=== PATIENT | female | born 1955 | race Caucasian/White ===

== ENCOUNTER → 2022-06-12 | Outpatient (CLI) | payer MEDICARE ==
--- NOTE | 2022-06-12 12:09 | Diagnostic Imaging Report ---
INDICATION: Postmenopausal screening. COMPARISON: None FINDINGS: AP Spine L1-L4: [BMD (g/cm2): 0.901] [T-Score: -2.5] [Z-Score: -0.6] [BMD Previous: na] [BMD % Change: na] LT Hip Neck: [BMD (g/cm2): 0.820] [T-Score: -1.6] [Z-Score: 0.2] LT Hip Total: [BMD (g/cm2):0.916] [T-Score:-0.7] [Z-Score: 0.8] [BMD Previous: na] [BMD % Change: na] RT Hip Neck: [BMD (g/cm2):0.899] [T-Score:-1.0] [Z-Score:0.8] RT Hip Total: [BMD (g/cm2):0.942] [T-score:-0.5] [Z-Score:1.0] [BMD Previous:na] [BMD % Change:na] *Indicates significant change from prior examination based on 95% confidence level. World Health Organization criteria for BMD interpretation classify patients as Normal (T-score at or above -1.0), Osteopenic (T-score between -1.0 and -2.5) or Osteoporotic (T-score at or below -2.5). LIMITATIONS AND MODIFICATION: None. FRACTURE RISK (FRAX SCORE): The ten year probability of (%): Major Osteoporotic Fracture: [9.9] Hip Fracture: [1.4] IMPRESSION: 1. Osteoporosis. 2. Baseline examination. 3. See below National Osteoporosis Foundation guidelines on when to potentially initiate pharmacologic therapy. Based on the National Osteoporosis Foundation Guidelines, pharmacologic treatment should be initiated in any of the following, unless clinical conditions suggest otherwise: * Any patient with prior fragility fracture of the hip or vertebrae. A spine fracture indicates 5X risk for subsequent spine fracture and 2X risk for subsequent hip fracture. * Osteoporosis (T-score <-2.5). * Postmenopausal women and men age 50 and older with low bone mass/osteopenia (T-score between -1.0 and -2.5) by DXA and 10-year major osteoporotic fracture greater than 20% or a 10-year probability of hip fracture greater than 3%. These fracture risks are supplied above in the FRAX score, if applicable. * Clinician judgement and/or patient preferences may indicate treatment for people with 10-year fracture probabilities above or below these levels. Dictated by: Dictated on workstation # [id number]
== END ==
LOC: RAD 11:00
PROVIDERS: ATTEND Nurse Practitioner Family
DX: Z13.820 Encounter for screening for osteoporosis (principal); M81.0 Age-related osteoporosis without current pathological fracture; Z78.0 Asymptomatic menopausal state
CPT/HCPCS: 77080

== ENCOUNTER 2022-08-23 05:31 | Outpatient (CLI) | payer MEDICARE ==
[~2022-08-23] VITALS: Ht 155 cm; Wt 59.0 kg
[2022-08-23] MEDS ORDERED: OXCA150T18 PO (12:00)
[2022-08-23] MEDS ORDERED: LISI10TA25 PO (12:00)
[2022-08-23] MEDS ORDERED: ALEN70TA80 PO (12:01)
== END 2022-08-23 12:31 | disposition home or self-care (01) ==
LOC: PREOP 05:31
PROVIDERS: ATTEND Otolaryngology Otolaryngology/Facial Plastic Surgery
DX: Z01.818 Encounter for other preprocedural examination (principal)

== ENCOUNTER 2022-08-30 07:01 | Day surgery (SDC) | payer MEDICARE ==
[~2022-08-30] VITALS: Ht 155 cm; Wt 59.0 kg
[2022-08-30] VITALS (11 sets, daily range): BP systolic 84–135; BP diastolic 32–92
[~2022-08-30 07:01] MED LIST: ALEN70TA80 PO; LISI10TA25 PO; OXCA150T18 PO
[2022-08-30] MEDS ORDERED: MIDAZOLAM 2 MG/2 ML (VERSED) VIAL ONE (07:47)
[2022-08-30] MEDS ORDERED: SCOPOLAMINE 1.5 MG (TRANSDERM-SCOP) PATCH ONE (07:48)
[2022-08-30] MEDS ORDERED: FAMOTIDINE 20MG/2ML IV (PEPCID) ONE (07:48)
[2022-08-30] MEDS ORDERED: ONDANSETRON 4 MG/2 ML (SDV) Z0FRAN ONE ×2 (07:48→08:08)
[2022-08-30 07:53] LABS: BASOPHILS # (AUTO) 0.1 10^3/uL (0.0-0.1); BASOPHILS % (AUTO) 1 % (0-10); EOSINOPHILS # (AUTO) 0.1 10^3/uL (0.0-0.3); EOSINOPHILS % (AUTO) 2 % (0-10); HEMATOCRIT 37 % (35-52); HEMOGLOBIN 12.3 g/dL (11.5-16.0); LYMPHOCYTES # (AUTO) 2.7 10^3/uL (1.0-4.0); LYMPHOCYTES % (AUTO) 48 % (12-44); MEAN CORPUSCULAR HEMOGLOBIN 31 pg (25-34); MEAN CORPUSCULAR HGB CONC 34 g/dL (32-36); MEAN CORPUSCULAR VOLUME 92 fL (80-99); MEAN PLATELET VOLUME 9.5 fL (9.0-12.2); MONOCYTES # (AUTO) 0.4 10^3/uL (0.0-1.0); MONOCYTES % (AUTO) 7 % (0-12); NEUTROPHILS # (AUTO) 2.4 10^3/uL (1.8-7.8); NEUTROPHILS % (AUTO) 42 % (42-75); PLATELET COUNT 313 10^3/uL (130-400); WHITE BLOOD COUNT 5.7 10^3/uL (4.3-11.0)
[2022-08-30] MEDS: LACTATED RINGERS 1,000 ML IV PRN ×2 (07:57→09:15)
[2022-08-30] MEDS ORDERED: ONDANSETRON 4 MG/2 ML (SDV) Z0FRAN IV ONE (08:00)
[2022-08-30] MEDS ORDERED: SCOPOLAMINE 1.5 MG (TRANSDERM-SCOP) PATCH TOP ONE (08:00)
[2022-08-30] MEDS ORDERED: MIDAZOLAM 2 MG/2 ML (VERSED) VIAL IV ONE (08:00)
[2022-08-30] MEDS ORDERED: FAMOTIDINE 20MG/2ML IV (PEPCID) IV ONE (08:00)
[2022-08-30] MEDS ORDERED: LIDOCAINE/EPI 1%-1:100,000 (XYLOCAINE) 10 ML ONE ×2 (08:03→08:25)
[2022-08-30] MEDS ORDERED: COCAINE HCL 4% 2 ML SYR ONE (08:03)
[2022-08-30] MEDS ORDERED: PHENYLEPHRINE 0.5% NASAL SPR (NEO-SYNEPHRINE) REG ONE ×2 (08:04→11:36)
[2022-08-30] MEDS ORDERED: fentaNYL INJ 100 MCG/2 ML AMP ONE (08:08)
[2022-08-30] MEDS ORDERED: ROCURONIUM 10 MG/ML 5 ML SYRINGE IV ONE (08:08)
[2022-08-30] MEDS ORDERED: LIDOCAINE PF 2% 5 ML (XYLOCAINE) VIAL ONE (08:08)
[2022-08-30] MEDS ORDERED: GLYCOPYRROLATE 0.2 MG/ML (ROBINUL) 2 ML VIAL ONE (08:08)
[2022-08-30] MEDS ORDERED: proPOfol 200 MG/20 ML (DIPRIVAN) VIAL IV ONE ×2 (08:08→09:04)
[2022-08-30 08:09] LABS: CALCIUM 9.1 MG/DL (8.5-10.1)
[2022-08-30] MEDS ORDERED: NEOSTIGMINE (BLOXIVERZ ) 1 MG/1ML 10 ML VIAL ONE (08:09)
[2022-08-30 08:13] LABS: CREATININE SERUM 0.8 MG/DL (0.60-1.30)
[2022-08-30] MEDS ORDERED: morphine INJ 10 MG/ML 1ML (SYR OR VIAL) IVP ONE (08:30)
[2022-08-30] MEDS ORDERED: PROMETHAZINE INJ 25 MG/ML (PHENERGAN) AMP IVP ONE (08:30)
[2022-08-30] MEDS ORDERED: HYDROmorphone 2 MG/ML VIAL (DILAUDID) IV ONE (08:30)
[2022-08-30] MEDS ORDERED: ONDANSETRON 4 MG/2 ML (SDV) Z0FRAN IVP PRN (08:30)
[2022-08-30] MEDS ORDERED: PROPOFOL INJECTION 50 ML IV ONE (08:47)
[2022-08-30] MEDS ORDERED: PHENYLEPHRINE 100 MCG/ML 10 ML (ANESTHESIA) SYR ONE (09:01)
--- NOTE | 2022-08-30 09:28 | Progress Note-Pre Operative ---
Pre-Operative Progress Note Date of Available H&P: Aug 30, 2022 Date H&P Reviewed: Aug 30, 2022 Time H&P Reviewed: 09:00 History & Physical: H&P Reviewed, Patient Examed, No changes noted Changes from last HP NONE Pre-Operative Diagnosis: Deviatd nasal SEptum , Bilat Hyper of INf Turbs ERIN MACK MD Aug 30, 2022 09:28
--- NOTE | 2022-08-30 09:29 | Progress Note-Post Operative ---
Post-Operative Progess Note Surgeon (s)/Mock Up Builder (s) Surgeon ERIN MACK MD Mock Up Builder n/a Pre-Operative Diagnosis Deviatd nasal SEptum , Bilat Hyper of INf Turbs Post-Operative Diagnosis same Post-Op Procedure Note Date of Procedure: Aug 30, 2022 Name of Procedure Performed: Nasal Septoplasty, Bialt Partial Reduction of the INferior Turbinates Description & Findings Description and Findings: n/a Anesthesia Type get Estimated Blood Loss minimal Packing none. Specimen(s) collected/removed none ERIN MACK MD Aug 30, 2022 09:29
[2022-08-30] MEDS ORDERED: HYDROcodone/APAP 5 MG/325 MG (LORTAB) TAB PO PRN (09:30)
[2022-08-30] MEDS ORDERED: PROMETHAZINE INJ 25 MG/ML (PHENERGAN) AMP IVP PRN (09:30)
[2022-08-30] MEDS ORDERED: D5 1/2 NS W/KCL 20 MEQ/L 1,000 ML IV SCH (09:30)
[2022-08-30] MEDS ORDERED: COCAINE HCL 4% 2 ML SYR TOP ONE (09:52)
[2022-08-30] MEDS ORDERED: ACHD5005 PO (10:37)
[2022-08-30] MEDS ORDERED: AMOX-355 PO (10:37)
[2022-08-30] MEDS ORDERED: ACETAMINOPHEN 325 MG TABLET ONE (11:00)
[2022-08-30] MEDS ORDERED: ACETAMINOPHEN 325 MG TABLET PO ONE (11:15)
[2022-08-30] MEDS ORDERED: LIDOCAINE/EPI 1%-1:100,000 (XYLOCAINE) 20ML IJ ONE (11:33)
--- NOTE | 2022-08-30 14:53 | Anesthesia-General Post-Op ---
General Patient Condition Mental Status/LOC: Same as Preop Cardiovascular: Satisfactory Nausea/Vomiting: Absent Respiratory: Satisfactory Pain: Controlled Complications: Absent Post Op Complications Complications None Follow Up Care/Instructions Patient Instructions None needed. Anesthesia/Patient Condition Patient Condition Patient was doing well this morning after the procedure with no complaints, stable vital signs, no apparent adverse anesthesia problems. No complications reported per nursing. MARY COTTON DO Aug 30, 2022 14:53
== END 2022-08-30 11:35 | disposition home or self-care (01) ==
LOC: SDC 07:01
PROVIDERS: ATTEND Otolaryngology Otolaryngology/Facial Plastic Surgery
DX: J34.2 Deviated nasal septum (principal); J34.89 Other specified disorders of nose and nasal sinuses; J34.3 Hypertrophy of nasal turbinates
CPT/HCPCS: 36415; 80048; 85025; 87081; 93005

== ENCOUNTER 2022-10-01 05:36 | Outpatient (CLI) | payer MEDICARE ==
[~2022-10-01] VITALS: Ht 156 cm; Wt 60.0 kg
[~2022-10-01 05:36] MED LIST changes: +ACHD5005 PO; +AMOX-355 PO
== END 2022-10-02 14:35 ==
LOC: PREOP 05:36
PROVIDERS: ATTEND Obstetrics & Gynecology
DX: Z01.818 Encounter for other preprocedural examination (principal); N81.10 Cystocele, unspecified; N81.6 Rectocele

== ENCOUNTER 2022-10-08 07:27 | Day surgery (SDC) | payer MEDICARE ==
[2022-10-08] VITALS (11 sets, daily range): BP systolic 86–108; BP diastolic 43–71
[2022-10-08] MEDS ORDERED: ESTROGENS CONJ. CREAM 30 GM (PREMARIN) TUBE ONE (07:42)
[2022-10-08] MEDS ORDERED: ONDANSETRON 4 MG/5 ML ORAL SOLN (ZOFRAN) 5 ML PO ONE (07:45)
[2022-10-08] MEDS ORDERED: FAMOTIDINE 20MG/2ML IV (PEPCID) IVP ONE (07:45)
[2022-10-08] MEDS ORDERED: SCOPOLAMINE 1.5 MG (TRANSDERM-SCOP) PATCH TD ONE (07:45)
[2022-10-08] MEDS ORDERED: NS (IVPB) 100 ML ONE (07:48)
[2022-10-08] MEDS ORDERED: VASOPRESSIN INJECTION 20 UNIT/ML VIAL ONE (07:49)
[2022-10-08] MEDS: LACTATED RINGERS 1,000 ML IV PRN ×2 (08:07→10:17)
[2022-10-08] MEDS ORDERED: ONDANSETRON 4 MG/2 ML (SDV) Z0FRAN IVP ONE (08:15)
[2022-10-08] MEDS ORDERED: ONDANSETRON 4 MG/2 ML (SDV) Z0FRAN ONE ×2 (08:15→09:45)
[2022-10-08] MEDS ORDERED: MIDAZOLAM 2 MG/2 ML (VERSED) VIAL ONE (08:26)
[2022-10-08] MEDS ORDERED: MIDAZOLAM 2 MG/2 ML (VERSED) VIAL IVP ONE (08:30)
[2022-10-08 08:41] LABS: BASOPHILS % (AUTO) 1 % (0-10); EOSINOPHILS # (AUTO) 0.1 10^3/uL (0.0-0.3); EOSINOPHILS % (AUTO) 1 % (0-10); HEMATOCRIT 38 % (35-52); HEMOGLOBIN 12.5 g/dL (11.5-16.0); LYMPHOCYTES # (AUTO) 2.3 10^3/uL (1.0-4.0); LYMPHOCYTES % (AUTO) 39 % (12-44); MEAN CORPUSCULAR HEMOGLOBIN 30 pg (25-34); MEAN CORPUSCULAR HGB CONC 33 g/dL (32-36); MEAN CORPUSCULAR VOLUME 93 fL (80-99); MEAN PLATELET VOLUME 9.7 fL (9.0-12.2); MONOCYTES # (AUTO) 0.5 10^3/uL (0.0-1.0); MONOCYTES % (AUTO) 8 % (0-12); NEUTROPHILS % (AUTO) 51 % (42-75); PLATELET COUNT 372 10^3/uL (130-400)
[2022-10-08] MEDS ORDERED: LIDOCAINE PF 2% 5 ML (XYLOCAINE) VIAL ONE (09:45)
[2022-10-08] MEDS ORDERED: proPOfol 200 MG/20 ML (DIPRIVAN) VIAL IV ONE (09:45)
[2022-10-08] MEDS ORDERED: fentaNYL INJ 100 MCG/2 ML AMP ONE (09:45)
[2022-10-08] MEDS ORDERED: PROPOFOL INJECTION 50 ML IV ONE ×2 (10:10→10:44)
[2022-10-08] MEDS ORDERED: ESTROGENS CONJ. CREAM 30 GM (PREMARIN) TUBE VG ONE (10:20)
[2022-10-08] MEDS ORDERED: NS 100 ML (IVPB) BAG INJ ONE (10:44)
[2022-10-08] MEDS ORDERED: VASOPRESSIN INJECTION 20 UNIT/ML VIAL INJ ONE (10:45)
--- NOTE | 2022-10-08 10:54 | Progress Note-Pre Operative ---
Pre-Operative Progress Note Date of Available H&P: Oct 08, 2022 Date H&P Reviewed: Oct 08, 2022 Time H&P Reviewed: 09:15 History & Physical: H&P Reviewed, Patient Examed, No changes noted Pre-Operative Diagnosis: Cystocele, Rectocele ERIN CASTRO DO Oct 08, 2022 10:54
--- NOTE | 2022-10-08 10:58 | Discharge Inst-Women's Service ---
Discharge Inst-Women's Serv Depart Medication/Instructions New, Converted or Re-Newed RX: Transmitted to Pharmacy Problems Reviewed?: Yes Consults/Follow Up Additional Follow Up: Yes Orders/Referrals Dr. Castro in 6-7 weeks Activity Activity: Activity as Tolerated Driving Instructions: No Driving for 1 Week NO SMOKING: NO SMOKING Nothing Inside Vagina: No Douching, No [place], No Tampons Diet Discharge Diet: No Restrictions Symptoms to Report to : Bleeding Excessive, Pain Increased, Fever Over 101 Degrees F, Vaginal Bleeding Increase, Questions/Concerns For Any Problems or Questions: Contact Your Physician ERIN CASTRO DO Oct 08, 2022 10:58
[2022-10-08] MEDS ORDERED: IBUP-844 PO (10:59)
[2022-10-08] MEDS ORDERED: DOCU100C37 PO (10:59)
[2022-10-08] MEDS ORDERED: ACHD5005 PO (10:59)
[2022-10-08] MEDS ORDERED: SIME80TA16 PO (10:59)
[2022-10-08] MEDS ORDERED: DOCUSATE SODIUM 100 MG (COLACE) CAP PO PRN (11:00)
[2022-10-08] MEDS ORDERED: ONDANSETRON 4 MG/2 ML (SDV) Z0FRAN IVP PRN (11:00)
[2022-10-08] MEDS ORDERED: KETOROLAC 30 MG/ML VIAL IVP PRN (11:00)
[2022-10-08] MEDS ORDERED: ZOLPIDEM 5 MG (AMBIEN) TAB PO PRN (11:00)
[2022-10-08] MEDS ORDERED: ONDANSETRON 4 MG/2 ML (SDV) Z0FRAN IV PRN (11:00)
[2022-10-08] MEDS ORDERED: HYDROmorphone 2 MG/ML VIAL (DILAUDID) IV ONE (11:00)
[2022-10-08] MEDS ORDERED: SIMETHICONE 80 MG (MYLICON) CHEW PO PRN (11:00)
[2022-10-08] MEDS ORDERED: ANTACID SUSP 30 ML UDC (MYLANTA) PO PRN (11:00)
[2022-10-08] MEDS ORDERED: morphine INJ 10 MG/ML 1ML (SYR OR VIAL) IVP ONE (11:00)
[2022-10-08] MEDS ORDERED: BENZOCAINE LOZENGES 1 EACH LOZENGE MM PRN (11:00)
[2022-10-08] MEDS ORDERED: IBUPROFEN 600 MG (MOTRIN) TAB PO PRN (11:00)
[2022-10-08] MEDS: LACTATED RINGERS 1,000 ML IV SCH ×3 (11:06→22:06)
--- NOTE | 2022-10-08 12:16 | Anesthesia-General Post-Op ---
General Patient Condition Mental Status/LOC: Same as Preop Cardiovascular: Satisfactory Nausea/Vomiting: Absent Respiratory: Satisfactory Pain: Controlled Complications: Absent Post Op Complications Complications None Follow Up Care/Instructions Patient Instructions None needed. Anesthesia/Patient Condition Patient Condition Patient was doing well earlier in PACU with no complaints, stable vital signs, no apparent adverse anesthesia problems. No complications reported per nursing. MARY COTTON DO Oct 08, 2022 12:16
[2022-10-08] MEDS: HYDROcodone/APAP 5 MG/325 MG (LORTAB) TAB PO PRN ×3 (12:19→17:30)
[2022-10-08] MEDS: KETOROLAC 30 MG/ML VIAL IVP SCH ×2 (14:14→19:53)
--- NOTE | 2022-10-08 21:37 | OPERATIVE REPORT ---
DATE OF SERVICE: 10/08/2022 PREOPERATIVE DIAGNOSIS: A 67-year-old female with grade 3 cystocele, grade 2 rectocele. POSTOPERATIVE DIAGNOSIS: A 67-year-old female with grade 3 cystocele, grade 2 rectocele. PROCEDURE: Anterior and posterior colporrhaphy with perineoplasty. SURGEON: Erin Castro DO ANESTHESIA: General endotracheal. ESTIMATED BLOOD LOSS: 40 mL. URINE OUTPUT: 80 mL clear at the end of procedure. SPECIMEN SENT: None. INDICATIONS FOR PROCEDURE: This is a 67-year-old female who is a patient, who sought care in my office for issues with bladder and rectal prolapse. She has been doing with this for years; however, finally she wants something done about this. She had consulted with her horseback riding instructor in [place]; however, moved to [place] recently and now wishes to proceed with this locally. Risks of the procedure were discussed with the patient in detail including risk of bleeding, infection, damaging the bladder and rectum itself, recovery time frame from this risk from anesthesia and even were all reviewed. We also discussed with the alternative of pessary placement. The patient wishes to proceed with a surgical option. After all of her questions were answered, consent was obtained preoperatively, the patient was taken to the operating room. OPERATIVE REPORT: Once in the operating room, anesthesia found to be adequate, placed in the dorsal lithotomy position and prepped and draped in a sterile fashion. Timeout was performed. A weighted speculum was inserted in the patient's vagina, which allows me to visualize the cystocele easily, which I infiltrated all margins of submucosally with vasopressin 20 units in 100 mL of normal saline concentration is used. Once all the margins of the cystocele are infiltrated and the mucosa of the vagina has blanched white as evidence of the medication being effective, I then make a transverse incision at the vaginal mucosa overlying the urethra, undermined the tissue down the midline using Metzenbaum scissors and make an incision of the mucosa down the midline using Metzenbaum scissors. Once this was done, I grasped the lateral margins of the mucosa tented upward with IT clamp and dissect the underlying vesicovaginal fascia laterally until the margins of the cystocele were met. After this was done bilaterally, I then plicate the cystocele by grabbing the lateral margins of the vesicovaginal fascia using 0 Vicryl suture in interrupted fashion. This reduces the cystocele as I go, the excess vaginal mucosa was then trimmed and then the vaginal mucosa was then reapproximated using 3-0 Vicryl suture in a running locked fashion after which there was no active bleeding noted from the anterior repair. The weighted speculum was removed. I took my attention to the posterior repair where at the mucocutaneous junction, I grasped at 4 and 8 o'clock positions using an Allis clamp and elevate the peritoneum and the perineal body, I infiltrate the subcutaneous tissue of the perineal body using the same vasopressin concentration. I then take this down the rectocele margin using vasopressin as well until all adequate tissue was blanched at which point I began the rectocele repair and perineoplasty by creating a triangular incision down the midline of the perineal body using a knife and I removed and excised this triangular shape of the perineum. This leads me with an opening defect and I am able to undermine using Metzenbaum scissors down the midline of the rectocele repair. Once this was done on the midline, I did make an incision down the midline of the rectocele repair and dissect the underlying rectovaginal fascia laterally. I trimmed the excess vaginal mucosa at this point and then began by reapproximating the vaginal mucosa and the rectovaginal fascia all in one layer using 3-0 Vicryl suture in a running locked fashion to secure bleeding as I go. Once I encountered the mucocutaneous junction, I reapproximated the perineal body using some larger 3-0 deep suture in a crown stitch formation reapproximating and building up the perineal body of the bulbocavernosus muscles. I then reapproximated the submucosa using 3-0 Vicryl suture in a running fashion and the subcutaneous tissue was reapproximated in similar fashion using 3-0 Vicryl suture in a subcuticular fashion, after which everything is reapproximated, there was no active bleeding noted from any of the dissection planes. I removed all the instruments from the patient's vagina and packed the vagina using Premarin-soaked packing. I leave the Godinez catheter in place. The patient tolerated the procedure well and was taken to recovery in stable condition. Lap and sponge counts were correct at the end of procedure, instrument counts correct as well. Job ID: [id number] DocumentID: [id number] Dictated Date: 10/08/2022 11:32:11 Cold Working Supervisor Date: 10/08/2022 21:35:00 Dictated By: ERIN CASTRO DO
[2022-10-09 01:28] VITALS: BP 100/64
[2022-10-09] MEDS: KETOROLAC 30 MG/ML VIAL IVP SCH ×2 (01:28→08:30)
[2022-10-09] MEDS: LACTATED RINGERS 1,000 ML IV SCH (04:46)
[2022-10-09 08:30] VITALS: BP 105/51
[2022-10-09] MEDS ORDERED: IBUPROFEN 600 MG (MOTRIN) TAB PO SCH (11:00)
== END 2022-10-09 11:00 | disposition home or self-care (01) ==
LOC: SDC 07:27 → WS 11:45 → SDC 10-09 11:00
PROVIDERS: ATTEND Obstetrics & Gynecology
DX: N81.6 Rectocele (principal); N81.10 Cystocele, unspecified; Z87.891 Personal history of nicotine dependence
CPT/HCPCS: 36415; 85025; 86850; 86900; 86901; 87081; 94664